=== PATIENT | female | born 1970 | race Caucasian/White ===

== ENCOUNTER 2016-06-15 10:35 | Emergency (ER) | payer MEDICAID ==
[2014-12-18 10:18] VITALS: BMI 39.5
[~2016-06-15 10:35] MED LIST: ADVAIR 250/501 DISK INH; ADVAIR 500/501 DISK INH; ALDACTAZIDE 25/1 TAB PO; ALDACTONE25 MG PO; BENADRYL 2% CRE30 GM TOPICAL; CALCIUM 600+D T1 TA1 PO; CLEOCIN HCL300 MG PO; COLACE100 MG PO; CYCLOBENZAPRINE10 MG PO; DILAUDID2 MG OR; DILAUDID2 MG PO; DUONEB 2.5-0.5 M3 ML UPD; FLEXERIL10 MG OR; FLORANEX / LACT1 TAB PO; HYOMAX0.125 MG PO; IPRAT-ALBUT 0.5-3 ML UPD; K-DUR20 MEQ PO; LASIX20 MG PO; LASIX40 MG PO; MONISTAT VG; OXYCONTIN10 MG PO; PERCOCET 10/3251 TA1 PO; PLEXUS; PRILOSEC20 MG PO; PRINIVIL10 MG PO; PROVENTIL HFA6.7 GM INH; SINGULAIR10 MG PO; SYMBICORT 16010.2 GM INH; VALIUM5 MG PO; ZOFRAN8 MG PO
== END 2016-06-15 14:14 | disposition home or self-care (01) ==
LOC: D.ER 10:35
DX: L25.9 Unspecified contact dermatitis, unspecified cause (principal); J45.909 Unspecified asthma, uncomplicated; E87.6 Hypokalemia

== ENCOUNTER 2016-10-06 11:48 | Emergency (ER) | payer MEDICAID ==
[2014-12-18 10:18] VITALS: BMI 39.5
== END 2016-10-06 12:51 | disposition home or self-care (01) ==
LOC: D.ER 11:48
DX: Z76.0 Encounter for issue of repeat prescription (principal); J45.909 Unspecified asthma, uncomplicated

== ENCOUNTER 2016-10-08 21:16 | Emergency (ER) | payer MEDICAID ==
[2014-12-18 10:18] VITALS: BMI 39.5
[2016-10-08 23:38] LABS: UDS - AMPHET NEGATIVE QUAL (NEGATIVE); UDS - BARB NEGATIVE QUAL (NEGATIVE); UDS - BENZO NEGATIVE QUAL (NEGATIVE); UDS - COCAINE NEGATIVE QUAL (NEGATIVE); UDS - METH NEGATIVE QUAL (NEGATIVE); UDS - OPIATE NEGATIVE QUAL (NEGATIVE); UDS - PCP NEGATIVE QUAL (NEGATIVE); UDS - THC NEGATIVE QUAL (NEGATIVE)
[2016-10-08 23:40] LABS: APPEARANCE CLEAR (CLEAR); BILIRUBIN NEGATIVE (NEGATIVE); COLOR YELLOW (YELLOW); GLUCOSE NEGATIVE (NEGATIVE); KETONE NEGATIVE (NEGATIVE); LEUKOCYTE ESTERASE TRACE (NEGATIVE); NITRITE NEGATIVE (NEGATIVE); PROTEIN NEGATIVE (NEGATIVE); UROBILINOGEN NORMAL (NORMAL)
[2016-10-08 23:41] LABS: BACTERIA NONE SEEN /hpf (NONE SEEN); EPITHELIAL CELLS 0-5 /hpf (0-5); RED CELLS - URINE NONE SEEN /hpf (0-5); WHITE CELLS - URINE 0-5 /hpf (0-5)
[2016-10-09 00:08] LABS: HEMATOCRIT 39.3 % (36.0-48.0); HEMOGLOBIN 13.3 g/dL (12-16); LYMPHOCYTES 26.2 % (15-50); MCH 32.8 pg (26.0-34.0); MCHC 33.8 g/dL (31.0-37.0); NEUTROPHILS 68.5 % (40-80); PLATELET COUNT 219 10x3/uL (130-400); RBC 4.05 10x6/uL (4.00-5.40); WBC 7.2 10x3/uL (4.8-10.8)
[2016-10-09 00:20] LABS: ALBUMIN 3.4 g/dL (3.4-5.0); ANION GAP 7.7 mmol/L (8-16); BILIRUBIN - TOTAL 0.46 mg/dL (0.2-1.3); CALCIUM 8.8 mg/dL (8.5-10.1); CARBON DIOXIDE 32.4 mmol/L (21.0-32.0); CREATININE - SERUM 1.2 mg/dL (0.6-1.3); POTASSIUM - SERUM 3.1 mmol/L (3.5-5.1); PROTEIN - SERUM 7.3 g/dL (6.4-8.2)
== END 2016-10-09 00:08 | disposition home or self-care (01) ==
LOC: D.ER 21:16
PROVIDERS: Emergency Medicine Emergency Medical Services
DX: Z03.89 Encounter for observation for other suspected diseases and conditions ruled out (principal); J45.909 Unspecified asthma, uncomplicated

== ENCOUNTER 2017-01-16 05:39 | Emergency (ER) | payer MEDICAID ==
[2014-12-18 10:18] VITALS: BMI 39.5
[2017-01-16 06:12] LABS: BASOPHILS 0.3 % (0-2); HEMATOCRIT 43.2 % (36.0-48.0); HEMOGLOBIN 14.6 g/dL (12-16); IMMATURE GRANULOCYTES 0.5 % (0-5); LYMPHOCYTES 34.1 % (15-50); MCH 33.6 pg (26.0-34.0); MCHC 33.8 g/dL (31.0-37.0); MCV 99.3 fL (80.0-100.0); MEAN PLATELET VOLUME 10.6 fL (7.4-10.4); MONOCYTES 3.8 % (2-11); NEUTROPHILS 59.3 % (40-80); RBC 4.35 10x6/uL (4.00-5.40); RDW 12.2 % (11.5-14.5)
[2017-01-16 06:13] LABS: PLATELET COUNT 290 10x3/uL (130-400)
[2017-01-16 06:32] LABS: ALBUMIN 3.4 g/dL (3.4-5.0); ANION GAP 19.8 mmol/L (8-16); BILIRUBIN - TOTAL 0.66 mg/dL (0.2-1.3); CALCIUM 8.4 mg/dL (8.5-10.1); CARBON DIOXIDE 25.8 mmol/L (21.0-32.0); MAGNESIUM - SERUM 1.8 mg/dL (1.8-2.4); PHOSPHOROUS 3.5 mg/dL (2.5-4.9); POTASSIUM - SERUM 3.6 mmol/L (3.5-5.1); PROTEIN - SERUM 7.6 g/dL (6.4-8.2)
== END 2017-01-16 06:56 | disposition home or self-care (01) ==
LOC: D.ER 05:39
PROVIDERS: Emergency Medicine
DX: I47.1 Supraventricular tachycardia (principal); I45.10 Unspecified right bundle-branch block

== ENCOUNTER 2017-05-30 04:54 | Emergency (ER) | payer MEDICAID ==
[2014-12-18 10:18] VITALS: BMI 39.5
[2017-05-30 05:30] LABS: BASOPHILS 0.2 % (0-2); EOSINOPHILS 0.1 % (0-7); HEMATOCRIT 45.5 % (36.0-48.0); HEMOGLOBIN 15.5 g/dL (12-16); IMMATURE GRANULOCYTES 0.6 % (0-5); LYMPHOCYTES 26.4 % (15-50); MCH 33.5 pg (26.0-34.0); MCHC 34.1 g/dL (31.0-37.0); MCV 98.5 fL (80.0-100.0); MEAN PLATELET VOLUME 10.7 fL (7.4-10.4); NEUTROPHILS 68.7 % (40-80); PLATELET COUNT 298 10x3/uL (130-400); RBC 4.62 10x6/uL (4.00-5.40); RDW 12.6 % (11.5-14.5); WBC 12.4 10x3/uL (4.8-10.8)
[2017-05-30 05:42] LABS: ALBUMIN 3.6 g/dL (3.4-5.0); ALKALINE PHOSPHATASE 86 U/L (46-116); ALT (SGPT) 85 U/L (10-68); BILIRUBIN - TOTAL 0.25 mg/dL (0.2-1.3); CALC OSMOLALITY 288 mosm/kg (275-300); CALCIUM 8.7 mg/dL (8.5-10.1); CARBON DIOXIDE 21.7 mmol/L (21.0-32.0); CHLORIDE - SERUM 102 mmol/L (98-107); GLUCOSE 197 mg/dL (74-106); POTASSIUM - SERUM 3.6 mmol/L (3.5-5.1); PROTEIN - SERUM 8.5 g/dL (6.4-8.2); SODIUM 141 mmol/L (136-145); UREA NITROGEN 20 mg/dL (7-18); eGFR NON AFRICAN AMERICAN 64 mL/min (90-120)
[2017-05-30 05:54] LABS: CKMB 0.7 U/L (0.0-3.6); CREATINE KINASE 72 UL (21-215)
[2017-05-30 06:03] LABS: TROPONIN-I < 0.017 ng/mL (0.000-0.060)
== END 2017-05-30 06:42 | disposition home or self-care (01) ==
LOC: D.ER 04:54
PROVIDERS: Emergency Medicine
DX: I47.1 Supraventricular tachycardia (principal); R07.9 Chest pain, unspecified; I45.10 Unspecified right bundle-branch block

== ENCOUNTER 2017-06-24 08:41 | Emergency (ER) | payer MEDICAID ==
[2014-12-18 10:18] VITALS: BMI 39.5
[2017-06-24 09:32] LABS: BASOPHILS 0.6 % (0-2); EOSINOPHILS 3.3 % (0-7); HEMATOCRIT 45.3 % (36.0-48.0); HEMOGLOBIN 15.5 g/dL (12-16); IMMATURE GRANULOCYTES 0.5 % (0-5); LYMPHOCYTES 25.2 % (15-50); MCH 33.6 pg (26.0-34.0); MCHC 34.2 g/dL (31.0-37.0); MCV 98.3 fL (80.0-100.0); MEAN PLATELET VOLUME 10.4 fL (7.4-10.4); NEUTROPHILS 63.4 % (40-80); RBC 4.61 10x6/uL (4.00-5.40); RDW 12.4 % (11.5-14.5); WBC 8.1 10x3/uL (4.8-10.8)
[2017-06-24 09:42] LABS: PLATELET COUNT 231 10x3/uL (130-400)
[2017-06-24 09:47] LABS: ALBUMIN 3.6 g/dL (3.4-5.0); ANION GAP 12.2 mmol/L (8-16); BILIRUBIN - TOTAL 0.37 mg/dL (0.2-1.3); CALCIUM 8.8 mg/dL (8.5-10.1); CARBON DIOXIDE 30.2 mmol/L (21.0-32.0); POTASSIUM - SERUM 4.4 mmol/L (3.5-5.1); PROTEIN - SERUM 8.6 g/dL (6.4-8.2)
[2017-06-24 09:55] LABS: APPEARANCE CLEAR (CLEAR); BILIRUBIN NEGATIVE (NEGATIVE); COLOR YELLOW (YELLOW); GLUCOSE NEGATIVE (NEGATIVE); KETONE NEGATIVE (NEGATIVE); NITRITE NEGATIVE (NEGATIVE); PROTEIN NEGATIVE (NEGATIVE); SPECIFIC GRAVITY 1.005 (1.005-1.020); UROBILINOGEN NORMAL (NORMAL)
== END 2017-06-24 11:21 | disposition home or self-care (01) ==
LOC: D.ER 08:41
PROVIDERS: Emergency Medicine
DX: M54.5 Low back pain (principal); J20.9 Acute bronchitis, unspecified

== ENCOUNTER 2017-06-30 22:57 | Emergency (ER) | payer MEDICAID ==
[2014-12-18 10:18] VITALS: BMI 39.5
[2017-06-30 23:21] LABS: BASOPHILS 0.3 % (0-2); HEMATOCRIT 48.7 % (36.0-48.0); HEMOGLOBIN 17.1 g/dL (12-16); IMMATURE GRANULOCYTES 0.6 % (0-5); LYMPHOCYTES 28.5 % (15-50); MCH 34.3 pg (26.0-34.0); MCHC 35.1 g/dL (31.0-37.0); MCV 97.6 fL (80.0-100.0); MEAN PLATELET VOLUME 10.5 fL (7.4-10.4); MONOCYTES 3.8 % (2-11); NEUTROPHILS 65.8 % (40-80); PLATELET COUNT 338 10x3/uL (130-400); RBC 4.99 10x6/uL (4.00-5.40); RDW 12.4 % (11.5-14.5); WBC 18.1 10x3/uL (4.8-10.8)
[2017-06-30 23:36] LABS: ALBUMIN 3.7 g/dL (3.4-5.0); ALKALINE PHOSPHATASE 87 U/L (46-116); ALT (SGPT) 63 U/L (10-68); CALC OSMOLALITY 288 mosm/kg (275-300); CALCIUM 9.9 mg/dL (8.5-10.1); CARBON DIOXIDE 27.5 mmol/L (21.0-32.0); CHLORIDE - SERUM 97 mmol/L (98-107); CREATININE - SERUM 1.4 mg/dL (0.6-1.3); GLUCOSE 174 mg/dL (74-106); POTASSIUM - SERUM 3.1 mmol/L (3.5-5.1); PROTEIN - SERUM 8.5 g/dL (6.4-8.2); SODIUM 139 mmol/L (136-145); UREA NITROGEN 32 mg/dL (7-18); eGFR NON AFRICAN AMERICAN 43 mL/min (90-120)
[2017-06-30 23:45] LABS: CHOL - HDL RATIO 3.7 ratio (2.3-4.1); CHOLESTEROL, TOTAL 235 mg/dL (0-200); CKMB 0.9 U/L (0.0-3.6); CREATINE KINASE 61 UL (21-215); HDL CHOLESTEROL 63 mg/dL (32-96); TRIGLYCERIDE 457 mg/dL (30-200); TROPONIN-I < 0.017 ng/mL (0.000-0.060)
== END 2017-07-01 03:03 | disposition home or self-care (01) ==
LOC: D.ER 22:57
PROVIDERS: Family Medicine
DX: I48.91 Unspecified atrial fibrillation (principal)

== ENCOUNTER 2017-07-07 07:53 | Emergency (ER) | payer MEDICAID ==
[2014-12-18 10:18] VITALS: BMI 39.5
[2017-07-07 08:30] LABS: BASOPHILS 0.2 % (0-2); EOSINOPHILS 0.6 % (0-7); HEMATOCRIT 42.5 % (36.0-48.0); HEMOGLOBIN 14.3 g/dL (12-16); IMMATURE GRANULOCYTES 0.4 % (0-5); LYMPHOCYTES 34.2 % (15-50); MCH 33.4 pg (26.0-34.0); MCHC 33.6 g/dL (31.0-37.0); MCV 99.3 fL (80.0-100.0); MONOCYTES 6.1 % (2-11); NEUTROPHILS 58.5 % (40-80); PLATELET COUNT 298 10x3/uL (130-400); RBC 4.28 10x6/uL (4.00-5.40); RDW 12.5 % (11.5-14.5); WBC 10.8 10x3/uL (4.8-10.8)
[2017-07-07 08:34] LABS: INR 1.01 (0.85-1.17); PROTIME 12.9 SECONDS (11.6-15.0)
[2017-07-07 08:36] LABS: D-DIMER-QUANTITATIVE < 0.27 ug/mLFEU (0.20-0.54)
[2017-07-07 08:37] LABS: ALBUMIN 3.3 g/dL (3.4-5.0); ANION GAP 12.7 mmol/L (8-16); BILIRUBIN - TOTAL 0.4 mg/dL (0.2-1.3); CALCIUM 8.9 mg/dL (8.5-10.1); CARBON DIOXIDE 25.1 mmol/L (21.0-32.0); POTASSIUM - SERUM 3.8 mmol/L (3.5-5.1); PROTEIN - SERUM 7.3 g/dL (6.4-8.2)
== END 2017-07-07 09:50 | disposition home or self-care (01) ==
LOC: D.ER 07:53
PROVIDERS: Family Medicine
DX: S90.121A Contusion of right lesser toe(s) without damage to nail, initial encounter (principal); W22.8XXA Striking against or struck by other objects, initial encounter; Y93.89 Activity, other specified; Y92.019 Unspecified place in single-family (private) house as the place of occurrence of the external cause

== ENCOUNTER 2017-07-27 04:04 | Observation (INO) | payer MEDICAID ==
[~2017-07-27] VITALS: Ht 162.6 cm; Wt 109.1 kg
[2017-07-27 04:53] LABS: BASOPHILS 0.3 % (0-2); EOSINOPHILS 0.4 % (0-7); HEMATOCRIT 45.2 % (36.0-48.0); HEMOGLOBIN 15.6 g/dL (12-16); IMMATURE GRANULOCYTES 0.4 % (0-5); LYMPHOCYTES 26.5 % (15-50); MCH 33.8 pg (26.0-34.0); MCHC 34.5 g/dL (31.0-37.0); MCV 97.8 fL (80.0-100.0); MEAN PLATELET VOLUME 10.9 fL (7.4-10.4); MONOCYTES 4.5 % (2-11); NEUTROPHILS 67.9 % (40-80); PLATELET COUNT 275 10x3/uL (130-400); RBC 4.62 10x6/uL (4.00-5.40); RDW 12.3 % (11.5-14.5); WBC 11.3 10x3/uL (4.8-10.8)
[2017-07-27 04:54] LABS: MAGNESIUM - SERUM 1.8 mg/dL (1.8-2.4); PHOSPHOROUS 3.2 mg/dL (2.5-4.9)
[2017-07-27 05:09] LABS: ALBUMIN 3.4 g/dL (3.4-5.0); ALKALINE PHOSPHATASE 89 U/L (46-116); ALT (SGPT) 50 U/L (10-68); BILIRUBIN - TOTAL 0.25 mg/dL (0.2-1.3); CALCIUM 8.2 mg/dL (8.5-10.1); CARBON DIOXIDE 22.5 mmol/L (21.0-32.0); CHLORIDE - SERUM 99 mmol/L (98-107); CKMB 0.8 U/L (0.0-3.6); CREATININE - SERUM 1.5 mg/dL (0.6-1.3); POTASSIUM - SERUM 3.4 mmol/L (3.5-5.1); PROTEIN - SERUM 7.5 g/dL (6.4-8.2); SODIUM 137 mmol/L (136-145); UREA NITROGEN 24 mg/dL (7-18); eGFR NON AFRICAN AMERICAN 40 mL/min (90-120)
[2017-07-27 05:12] LABS: CALC OSMOLALITY 284 mosm/kg (275-300); GLUCOSE 223 mg/dL (74-106); TROPONIN-I < 0.017 ng/mL (0.000-0.060)
[2017-07-27] MEDS ORDERED: K-DUR20 MEQ PO (07:56)
[2017-07-27] MEDS ORDERED: ORAPRED ODT10 MG/TAB PO (07:57)
[2017-07-27] MEDS ORDERED: ALDACTAZIDE 25/1 TAB PO (07:59)
[2017-07-27] MEDS ORDERED: NEURONTIN 300300 MG PO (08:00)
[2017-07-27] MEDS ORDERED: TOPAMAX50 MG PO (08:00)
[2017-07-27] MEDS ORDERED: ROBAXIN500 MG PO (08:01)
[2017-07-27 08:26] VITALS: BP 152/84
[2017-07-27 08:28] VITALS: BP 151/89; BMI 41.3
[2017-07-27 11:51] VITALS: BP 165/82
[2017-07-27] MEDS ORDERED: LOPRESSOR25 MG PO (12:04)
[2017-07-27 12:17] VITALS: Ht 162.6 cm; Wt 109.1 kg
== END 2017-07-27 14:45 | disposition home or self-care (01) ==
LOC: D.ER 04:04 → OBSVTIME 05:54 → D.EDHOLD 05:54 → D.M2 05:54
PROVIDERS: Family Medicine
DX: I47.1 Supraventricular tachycardia (principal); I10 Essential (primary) hypertension; M54.5 Low back pain; G89.29 Other chronic pain; J45.909 Unspecified asthma, uncomplicated; G40.909 Epilepsy, unspecified, not intractable, without status epilepticus; K21.9 Gastro-esophageal reflux disease without esophagitis; F41.9 Anxiety disorder, unspecified; Z87.891 Personal history of nicotine dependence; N17.9 Acute kidney failure, unspecified; G62.9 Polyneuropathy, unspecified

== ENCOUNTER 2018-02-13 14:49 | Emergency (ER) | payer MEDICAID ==
[~2018-02-13] VITALS: Ht 162.6 cm; Wt 109.1 kg
[~2018-02-13 14:49] MED LIST changes: +LOPRESSOR25 MG PO; +NEURONTIN 300300 MG PO; +ORAPRED ODT10 MG/TAB PO; +ROBAXIN500 MG PO; +TOPAMAX50 MG PO
[2018-02-13 15:04] VITALS: BP 144/101; Ht 162.6 cm; Wt 109.1 kg
[2018-02-13] MEDS ORDERED: CYCLOBENZAPRINE10 MG PO (17:39)
[2018-02-13] MEDS ORDERED: MEDROL DOSE PACK4 MG PO (17:39)
== END 2018-02-13 18:11 | disposition home or self-care (01) ==
LOC: D.ER 14:49
DX: S39.012A Strain of muscle, fascia and tendon of lower back, initial encounter (principal); W01.0XXA Fall on same level from slipping, tripping and stumbling without subsequent striking against object, initial encounter; Y93.89 Activity, other specified; Y92.019 Unspecified place in single-family (private) house as the place of occurrence of the external cause; M62.838 Other muscle spasm; S46.911A Strain of unspecified muscle, fascia and tendon at shoulder and upper arm level, right arm, initial encounter; M25.552 Pain in left hip; M54.5 Low back pain; I10 Essential (primary) hypertension

== ENCOUNTER 2018-07-28 11:12 | Emergency (ER) | payer MEDICAID ==
[~2018-07-28] VITALS: Ht 162.6 cm; Wt 100.0 kg
[~2018-07-28 11:12] MED LIST changes: +MEDROL DOSE PACK4 MG PO
[2018-07-28 11:17] VITALS: Ht 162.6 cm; Wt 100.0 kg
[2018-07-28 11:54] LABS: BASOPHILS 0.4 % (0-2); EOSINOPHILS 1.5 % (0-7); HEMATOCRIT 47.9 % (36.0-48.0); HEMOGLOBIN 16.1 g/dL (12-16); IMMATURE GRANULOCYTES 0.6 % (0-5); LYMPHOCYTES 22.4 % (15-50); MCH 33.8 pg (26.0-34.0); MCHC 33.6 g/dL (31.0-37.0); MCV 100.4 fL (80.0-100.0); MEAN PLATELET VOLUME 10.8 fL (7.4-10.4); NEUTROPHILS 70.1 % (40-80); PLATELET COUNT 213 10x3/uL (130-400); RBC 4.77 10x6/uL (4.00-5.40); RDW 13.3 % (11.5-14.5); WBC 8.1 10x3/uL (4.8-10.8)
[2018-07-28 11:58] LABS: APTT 26.4 SECONDS (22.8-39.4); INR 1.05 (0.85-1.17); PROTIME 13.2 SECONDS (11.6-15.0)
[2018-07-28 12:17] LABS: ALBUMIN 3.4 g/dL (3.4-5.0); ALKALINE PHOSPHATASE 106 U/L (46-116); ALT (SGPT) 105 U/L (10-68); BILIRUBIN - TOTAL 0.48 mg/dL (0.2-1.3); CALC OSMOLALITY 281 mosm/kg (275-300); CALCIUM 8.8 mg/dL (8.5-10.1); CARBON DIOXIDE 29.2 mmol/L (21.0-32.0); CHLORIDE - SERUM 102 mmol/L (98-107); CREATININE - SERUM 0.8 mg/dL (0.6-1.3); POTASSIUM - SERUM 4.5 mmol/L (3.5-5.1); PROTEIN - SERUM 8.2 g/dL (6.4-8.2); SODIUM 141 mmol/L (136-145); UREA NITROGEN 13 mg/dL (7-18); eGFR NON AFRICAN AMERICAN 82 mL/min (90-120)
[2018-07-28 12:18] LABS: GLUCOSE 116 mg/dL (74-106)
[2018-07-28 13:32] VITALS: BP 170/105
== END 2018-07-28 13:34 | disposition home or self-care (01) ==
LOC: D.ER 11:12
PROVIDERS: Family Medicine
DX: S70.02XA Contusion of left hip, initial encounter (principal); W18.30XA Fall on same level, unspecified, initial encounter; Y93.89 Activity, other specified; Y92.010 Kitchen of single-family (private) house as the place of occurrence of the external cause; S70.12XA Contusion of left thigh, initial encounter; M79.662 Pain in left lower leg

== ENCOUNTER → 2018-08-06 14:31 | Outpatient (CLI) | payer MEDICAID ==
[2018-07-28 11:17] VITALS: BMI 37.8
== END | disposition home or self-care (01) ==
LOC: D.MRI 14:30
PROVIDERS: ATTEND Clinical Nurse Specialist Family Health
DX: M25.552 Pain in left hip (principal); M54.16 Radiculopathy, lumbar region

== ENCOUNTER 2018-08-25 07:22 | Inpatient (IN) | payer MEDICAID ==
[~2018-08-25] VITALS: Ht 162.6 cm; Wt 111.1 kg
[2018-08-25 08:21] LABS: BASOPHILS 0.3 % (0-2); EOSINOPHILS 2.6 % (0-7); HEMATOCRIT 44.4 % (36.0-48.0); HEMOGLOBIN 15.1 g/dL (12-16); IMMATURE GRANULOCYTES 0.3 % (0-5); LYMPHOCYTES 22.3 % (15-50); MEAN PLATELET VOLUME 10.8 fL (7.4-10.4); MONOCYTES 4.4 % (2-11); NEUTROPHILS 70.1 % (40-80); RBC 4.44 10x6/uL (4.00-5.40); RDW 13.1 % (11.5-14.5); WBC 11.5 10x3/uL (4.8-10.8)
[2018-08-25 08:29] LABS: ALKALINE PHOSPHATASE 120 U/L (46-116); ALT (SGPT) 97 U/L (10-68); BILIRUBIN - TOTAL 0.65 mg/dL (0.2-1.3); C-REACTIVE PROTEIN 2.5 mg/dL (0.0-0.9); CALC OSMOLALITY 274 mosm/kg (275-300); CALCIUM 9.4 mg/dL (8.5-10.1); CARBON DIOXIDE 31.1 mmol/L (21.0-32.0); CHLORIDE - SERUM 99 mmol/L (98-107); CREATINE KINASE 51 UL (21-215); CREATININE - SERUM 0.8 mg/dL (0.6-1.3); GLUCOSE 131 mg/dL (74-106); POTASSIUM - SERUM 3.7 mmol/L (3.5-5.1); PROTEIN - SERUM 7.8 g/dL (6.4-8.2); SODIUM 137 mmol/L (136-145); UREA NITROGEN 11 mg/dL (7-18); URIC ACID 4.3 mg/dL (2.6-7.2); eGFR NON AFRICAN AMERICAN 82 mL/min (90-120)
[2018-08-25 08:37] LABS: PLATELET COUNT 289 10x3/uL (130-400)
[2018-08-25 09:58] LABS: ERYTHROCYTE SEDIMENTATION RATE 26 mm/hr (0-20)
--- NOTE | 2018-08-25 13:58 | NUR ---
NURSE GIVING REPORT FROM ER STATED PATIENT'S PRN DILAUDID ONLY LASTING ONE TO TWO HOURS. SPOKE WITH DR REED WHO STATED DOES NOT FEEL COMFORTABLE CHANGING MEDICATIONS. STATED TO LET ADMITTING DOCTOR ADJUST MEDS NEEDED.
[2018-08-25 15:14] VITALS: BP 151/90; BMI 42.1
[2018-08-25] MEDS ORDERED: GLUCOTROL ER2.5 MG PO (15:24)
--- NOTE | 2018-08-25 15:48 | NUR ---
PATIENT ADMITTED TO ROOM 2237. ALERT AND ORIENTED X 3. LUNGS CLEAR BILATERALLY IN ALL DAMIAN. HEART SOUNDS S1 AND S2 HEARD IN ALL DAMIAN. BOWEL SOUNDS ACTIVE X 4. C/O INTRACTABLE PAIN IN LEFT ANKLE AND FOOT. PIPE SMOKING MACHINE OFFBEARER SET UP ON ADMISSION PER ORDER. REFUSES SCDS. IV TO RIGHT AC PATENT WITHOUT REDNESS. DENIES FURTHER NEEDS. FAMILY AT BEDSIDE. BED LOW. CALL HINSON AND PERSONAL ITEMS IN REACH. WILL CONTINUE TO MONITOR.
--- NOTE | 2018-08-25 15:49 | MORECARE ---
CASE MANAGEMENT DISCHARGE SUMMARY PATIENT: OLIVIA WASHINGTON S UNIT: [id number] ADM DATE: 08/25/18 AGE: 48 : 74 SEX: F ROOM/BED: D.2237 AUTHOR: GREG MILLER PHYSICIAN: REFERRING PHYSICIAN: BRENNAN MEDINA MD DATE OF SERVICE: 08/25/18 Discharge Plan Patient Name: OLIVIA WASHINGTON [facility] [facility] 1970 Planned Disposition: Home Health Service Anticipated Discharge Date: 08/27/18 Discharge Date: Expected LOS: 2 Initial Reviewer: [email or web address] Initial Review Date: 08/25/2018 Generated: 08/25/18 4:49 pm DCPIA - Discharge Planning Initial Assessment Updated by [email or web address]: Shayla Alvarez on 08/25/18 3:46 pm * Is the patient Alert and Oriented? Yes * How many steps to enter\exit or inside your home? * PCP DR. Temple ([facility] ) * Pharmacy [facility] on [address] * Preadmission Environment Home with Family * ADLs Partial Dependent * Partial ADLs (Assistance needed) Bathing Dressing Transfers * Equipment Bedside Commode Rolling Walker * List name and contact numbers for known caregivers / representatives who currently or will assist patient after discharge: Pardeep Washington - [facility] - [phone] * Verbal permission to speak to the caregivers and representatives has been obtained from the patient. Yes * Community resources currently utilized None * Please name any agencies selected above. Has had [facility] in [facility] past and would like them again * Additional services required to return to the preadmission environment? No * Can the patient safely return to the preadmission environment? Yes * Has this patient been hospitalized within the prior 30 days at any hospital? No Patient Name: OLIVIA WASHINGTON Page [id number] at 1540 All edits/amendments must be made on the electronic document DICTATION DATE: 08/25/18 1544 SAFETY ASSISTANT: BETZY 08/25/18 1549 RPT#: [id number] DC DATE: STATUS: ADM IN [facility] [address] [place] [address] END OF REPORT
[2018-08-25 17:13] VITALS: BP 151/60
--- NOTE | 2018-08-25 18:10 | NUR ---
IV RESITED TO STORM PER REQUEST AFTER 2 ATTEMPTS. DENIES FURTHER NEEDS. BED LOW. CALL HINSON AND PERSONAL ITEMS IN REACH.
--- NOTE | 2018-08-25 19:35 | NUR ---
RATES PAIN IN ABD/BACK AND LLE 8. RETAIL ATTENDANT DILAUDID IN USE. 2+ EDEMA NOTED TO LT ANKLE. BILAT PULSES WEAK. NS @ KVO INFUSING IN RT FOREARM. RESP EVEN AND NONLABORED. ALERT AND ORIENTED X4. CL IN REACH.
[2018-08-25 20:00] VITALS: BP 127/61
--- NOTE | 2018-08-25 20:05 | NUR ---
IV OUT AT THIS TIME. MEDICATED WITH PERCOCET WHILE ATTEMPTING TO RESTART IV.
[2018-08-26 04:00] VITALS: BP 133/73
--- NOTE | 2018-08-26 04:53 | NUR ---
PT HAS HAD IV X2 TO INFILTRATE TONIGHT AND HAS HAD MULTIPLE IV STICKS. IV NOW IN RT HAND. NAMED ACCOUNT EXECUTIVE DILAUDID IN USE. PT HAS BEEN USING FREQUENTLY. V/S STABLE. NO DISTRESS. CL IN REACH. HASNT SLEPT MUCH TONIGHT.
--- NOTE | 2018-08-26 05:39 | NUR ---
C/O ITCHING. PT HAS HAD TAPE ON IV SITE ATTEMPTS. NOTIFIED DANTE SCALES. NEW ORDER NOTED FOR BENADRYL 50 MG PO NOW AND 25MG PO Q 6PRN. PT MEDICATED AT THIS TIME. STATES, "LIQUID WORKS BETTER AND HELPS YOU SLEEP." IRRITATED THAT CAPSULES WERE ORDERED.
[2018-08-26 05:44] LABS: BASOPHILS 0 % (0-2); EOSINOPHILS 0 % (0-7); HEMATOCRIT 41.5 % (36.0-48.0); HEMOGLOBIN 13.6 g/dL (12-16); IMMATURE GRANULOCYTES 0.2 % (0-5); LYMPHOCYTES 13.6 % (15-50); MCH 33.3 pg (26.0-34.0); MCHC 32.8 g/dL (31.0-37.0); MCV 101.5 fL (80.0-100.0); MONOCYTES 4.3 % (2-11); NEUTROPHILS 81.9 % (40-80); RBC 4.09 10x6/uL (4.00-5.40); RDW 12.7 % (11.5-14.5); WBC 9.3 10x3/uL (4.8-10.8)
[2018-08-26 06:04] LABS: PLATELET COUNT 220 10x3/uL (130-400)
[2018-08-26 06:17] LABS: ALBUMIN 2.9 g/dL (3.4-5.0); ANION GAP 10.7 mmol/L (8-16); BILIRUBIN - TOTAL 0.36 mg/dL (0.2-1.3); CALCIUM 9.2 mg/dL (8.5-10.1); CARBON DIOXIDE 30.2 mmol/L (21.0-32.0); POTASSIUM - SERUM 3.9 mmol/L (3.5-5.1); PROTEIN - SERUM 7.2 g/dL (6.4-8.2)
--- NOTE | 2018-08-26 07:27 | NUR ---
PT IS RESTING IN BED WITH EYES CLOSED RESPIRATIONS ARE EVEN AND UNLABORED. FAMILY MEMBER IS IN PT BED WELL. PT REPORTS ITCHING ALLOVER. PT REPORTS PAIN 8/10. COMPRESSION MOLDING MACHINE TENDER DILAUDID AVAILABLE. PIV TO RIGHT WRIST IS INFUSING WITHOUT DIFFICULTY. PT STATES "I FEEL LIKE MY IV IS ABOUT TO BLOW". PT STATES THAT SHE BELIEVES THAT SHE BELIEVES THAT SHE HAS AN ALLERGY TO VANC BECAUSE "I AM ITCHING AND I HAVE A RASH NOW AND THAT IT THE ONLY THING THAT IS NEW". WILL ADDRESS ITCHING. SEE EMAR. PT WITH MULTIPLE SCRATCHES TO BILATERAL UPPER EXTREMITIES THAT PT STATES WERE CAUSED FROM A KITTEN. PT IS CONCERNED ABOUT POSSIBLE CAT SCRATCH FEVER. SWELLING NOTED TO LEFT FOOT. PEDAL PULSES ARE PALPABLE. BED IS IN THE LOWEST POSITION. CALL LIGHT AND BEDSIDE TABLE ARE WITHIN REACH. SIDE RAILS X 2. WILL CONT TO MONITOR. PT DENIES FURTHER NEEDS.
--- NOTE | 2018-08-26 08:52 | MORECARE ---
CASE MANAGEMENT DISCHARGE SUMMARY PATIENT: OLIVIA WASHINGTON UNIT: [id number] ADM DATE: 08/25/18 AGE: 48 : 74 SEX: F ROOM/BED: D.2237 AUTHOR: PAUL,DOC PHYSICIAN: REFERRING PHYSICIAN: BRENNAN MEDINA MD DATE OF SERVICE: 08/26/18 Discharge Plan Patient Name: OLIVIA WASHINGTON Facility: [facility]:[place] : 1970 Planned Disposition: Home Health Service Anticipated Discharge Date: 08/27/18 Discharge Date: Expected LOS: 2 Initial Reviewer: [email or web address] Initial Review Date: 08/25/2018 Generated: 08/26/18 9:52 am Comments DCP- Discharge Planning Updated by [email or web address]: Regine Rivera on 08/26/18 7:[address] Patient Name: OLIVIA WASHINGTON Admission Status: ER Accout number: [id number] Admission Date: 08-25-2018 : 1970 Admission Diagnosis: Attending: BRENNAN MEDINA Current LOS: 1 Anticipated DC Date: 08-27-2018 Planned Disposition: Home Health Service [facility] TAMMY Discharge Planning Comments: CM met with patient to complete initial dc planning assessment. CM educated patient on the CM role and verbal consent given by patient to complete assessment. CM verified patient's address, phone number, and emergency contact phone numbers. Patient lives at home with her . At discharge patient plans to return home and feels this is a safe discharge. CM discussed availability of home health, rehab services, and medical equipment. Patient stated she has had HH in the past and would like [facility] at dc as long as she does not have any out of pocket expenses. SEEMA form signed by patient for [facility]. Signed form placed in chart and signed form given to patient. Patient denied further known discharge needs at this time. Patient reports her will transport her home at time of discharge. CM will continue to follow and will assist as needed with dc plans/needs. Animal Assisted Therapist: Shayla Alvarez RN, [facility] DCPIA - Discharge Planning Initial Assessment Updated by [email or web address]: Shayla Alvarez on 08/25/18 3:46 pm * Is the patient Alert and Oriented? Yes * How many steps to enter\exit or inside your home? * PCP DR. Temple ([facility]) * Pharmacy [facility] on [place] * Preadmission Environment Home with Family * ADLs Partial Dependent * Partial ADLs (Assistance needed) Bathing Dressing Transfers * Equipment Bedside Commode Rolling Walker * List name and contact numbers for known caregivers / representatives who currently or will assist patient after discharge: Pardeep Washington - [facility] - [phone] * Verbal permission to speak to the caregivers and representatives has been obtained from the patient. Yes * Community resources currently utilized None * Please name any agencies selected above. Has had [facility] in the past and would like them again * Additional services required to return to the preadmission environment? No * Can the patient safely return to the preadmission environment? Yes * Has this patient been hospitalized within the prior 30 days at any hospital? No Last DP export: 08/25/18 2:49 p Patient Name: OLIVIA WASHINGTON Page 51877 at 0852 All edits/amendments must be made on the electronic document DICTATION DATE: 08/26/18851 INSPECTOR GLASS OR MIRROR: BETZY 08/26/1852 RPT#: [id number] DC DATE: STATUS: ADM IN [facility] [address] [place] [address] END OF REPORT
[2018-08-26 09:25] VITALS: BP 143/91
--- NOTE | 2018-08-26 09:46 | NUR ---
PT STATES THAT "I FEEL LIKE MY IV IS ABOUT TO BLOW". IV INFUSING TO RIGHT WRIST WITHOUT DIFFICULTY/REDNESS/SWELLING/WARMTH/TENDERNESS. PT STATES THAT THE IV MACHINE WILL NOT STOP BEEPING. PT REQUESTS TO CONTACT VASCULAR ACCESS FOR OTHER POSSIBLE IV ACCESS. VASCULAR ACCESS NOTIFIED OF NEED TO ASSESS PT.
--- NOTE | 2018-08-26 11:34 | NUR ---
PT STATES THAT VANCOMYCIN IS CAUSING HER TO ITCH AND HAS CAUSED GENERALIZED REDNESS. PT STATES, "I AM NOT TAKING THAT STUFF AGAIN".
[2018-08-26 13:10] VITALS: BP 135/86
--- NOTE | 2018-08-26 13:34 | NUR ---
PT REPORTS INCREASED ITCHING SINCE INFUSION STARTED WITH MERREM. SEE EMAR FOR INFUSION START TIME. PT INSISTS THAT INFUSION BE STOPPED. INFUSION IS STOPPED AT THIS TIME.
[2018-08-26 14:48] VITALS: Ht 162.6 cm; Wt 111.1 kg
--- NOTE | 2018-08-26 14:48 | NUR ---
PT REQUESTS PIV TO BE MOVED FROM RIGHT WRIST. VASCULAR ACCESS NURSE TITO AT BEDSIDE. 22G TO RIGHT FOREARM PLACED X 2 ATTEMPTS. INFUSION MOVED TO NEW IV SITE. RIGHT WRIST IV SITE SALINE LOCKED.
[2018-08-26] MEDS ORDERED: PRENAVITE1 TAB PO (15:21)
[2018-08-26] MEDS ORDERED: LIPITOR40 MG PO (15:21)
[2018-08-26] MEDS ORDERED: LASIX40 MG PO (15:22)
[2018-08-26] MEDS ORDERED: BACLOFEN10 MG PO (15:22)
[2018-08-26] MEDS ORDERED: IBUPROFEN800 MG PO (15:23)
[2018-08-26] MEDS ORDERED: LYRICA75 MG PO (15:23)
[2018-08-26] MEDS ORDERED: CYMBALTA60 MG PO (15:24)
[2018-08-26] MEDS ORDERED: VALIUM5 MG PO (15:24)
--- NOTE | 2018-08-26 16:50 | NUR ---
PT SITTING IN BED WITH EYES OPEN. PT IS CRYING AND SOBBING UNCONTROLLABLY DUE TO "IT FEELS LIKE THERE IS A SPIKE BEING RAMMED THROUGH MY ANKLE AND FOOT". PT WITH BARREL PAINTER DILAUDID AVAILABLE. WILL ADDRESS BREAKTHROUGH PAIN. SEE EMAR. PT WITH ICE PACK/ELEVATED LOWER EXTREMITY AT THIS TIME.
[2018-08-26 17:14] LABS: ERYTHROCYTE SEDIMENTATION RATE 23 mm/hr (0-20)
[2018-08-26 17:30] VITALS: BP 150/97
--- NOTE | 2018-08-26 19:58 | NUR ---
PT C/O PAIN LEFT FOOT WANTS TO SEE IF CAN GET PAIN GEL FOR RELIEF, WILL LEAVE NOTE FOR DOCTOR OF REQUEST, PRN PAIN MED GIVEN AT 1700 NOT DUE AGAIN UNTIL 2099, WILL MONITOR PAIN UNTIL 2099
[2018-08-26 20:00] VITALS: BP 148/82
[2018-08-27] VITALS: BP 146/93
[2018-08-27 04:00] VITALS: BP 130/81
--- NOTE | 2018-08-27 04:31 | NUR ---
I have reviewed this patient and I concur with the Shift Assessment completed by the Licensed Practical Nurse today this shift.
[2018-08-27 06:37] LABS: BASOPHILS 0.4 % (0-2); EOSINOPHILS 1.6 % (0-7); HEMATOCRIT 40.8 % (36.0-48.0); HEMOGLOBIN 13.1 g/dL (12-16); IMMATURE GRANULOCYTES 0.3 % (0-5); LYMPHOCYTES 21.8 % (15-50); MCH 33.2 pg (26.0-34.0); MCHC 32.1 g/dL (31.0-37.0); MONOCYTES 3.1 % (2-11); NEUTROPHILS 72.8 % (40-80); PLATELET COUNT 231 10x3/uL (130-400); RBC 3.94 10x6/uL (4.00-5.40); RDW 12.8 % (11.5-14.5)
[2018-08-27 06:43] LABS: ANION GAP 7.7 mmol/L (8-16); BILIRUBIN - TOTAL 0.43 mg/dL (0.2-1.3); CALCIUM 9.5 mg/dL (8.5-10.1); CARBON DIOXIDE 33.2 mmol/L (21.0-32.0); POTASSIUM - SERUM 3.9 mmol/L (3.5-5.1); PROTEIN - SERUM 7.4 g/dL (6.4-8.2)
[2018-08-27 06:48] LABS: MCV 103.6 fL (80.0-100.0)
--- NOTE | 2018-08-27 07:15 | NUR ---
SITTING IN BED. ALERT AND ORIENTED X 3. LUNGS CLEAR BILATERALLY IN ALL DAMIAN. HEART SOUNDS S1 AND S2 HEARD IN ALL DAMIAN. BOWEL SOUNDS ACTIVE X 4. SKIN INTACT WITHOUT REDNESS. COMPLAINT OF PAIN IN LEFT ANKLE/FOOT. NO PAIN MEDICATIONS AVAILABLE AT THIS TIME. AUTHORS MOTIVATIONAL PUMP IN PLACE. IV PATENT TO [facility] AND WRAPPED WITH KERLIX PER REQUEST. SANDWICH GIVEN PER REQUEST. BED LOW. CALL HINSON AND PERSONAL ITEMS IN REACH. DENIES FURTHER NEEDS. WILL CONTINUE TO MONITOR.
--- NOTE | 2018-08-27 08:14 | NUR ---
REQUEST TO BE DISCONNECTED FROM IV TO GO DOWN TO VENDING MACHINE. IV DISCONNECTED PER REQUEST.
[2018-08-27 08:35] VITALS: BP 151/95
--- NOTE | 2018-08-27 09:02 | NUR ---
STATES DOES NOT TAKE METOPROLOL AND WANTS TAKEN OFF LIST OF MEDICATION.
--- NOTE | 2018-08-27 09:12 | NUR ---
REQUESTED AND GIVEN ICE PACKS FOR ANKLE. STATES DOES NOT WANT METOPROLOL ON MED LIST ANYMORE, WANTS STOOL SOFTENER ADDED, WANTS MERREM TAKEN OFF OF MAY. WILL NOTIFY MD. DENIES FURTHER NEEDS.
--- NOTE | 2018-08-27 10:20 | NUR ---
SPOKE WITH LAMIN ALFONSO ABOUT PATIENT'S CONCERNS AND ABOUT PATIENT NOT BEING ABLE TO DO MRI. STATES WILL CORRECT PATIENT MEDICATIONS AND TO OFFER PATIENT VALIUM BEFORE MRI.
--- NOTE | 2018-08-27 10:33 | NUR ---
LULÚ WAS BROUGHT TO MRI. WE SCANNED MOST OF THE PRECONTRAST IMAGES BEFORE THE PATIENT QUIT. SHE WANTED TO GO BACK TO HER ROOM AND SLEEP. SPOKE WITH DR VAZQUEZ ABOUT WHAT WAS COMPLETED. SHE SAID WE NEEDED TO CHANGE ORDER TO A WITHOUT AND SEND IMAGES TO PACS TO BE READ. SPOKE WITH MICA AT DR MCGINNIS OFFICE. INFORMED PATIENTS NURSE EVANS.
--- NOTE | 2018-08-27 10:35 | NUR ---
OFFERED PATIENT VALIUM FOR MRI. STATES MIGHT CONSIDER DOING MRI AFTER LUNCH. MARGARITO ALFONSO NOTIFIED. MACHINE FEATHEREDGER AND REDUCER STATED TO NOTIFY DR MCGINNIS. ATTEMPTED TO CALL DR MCGINNIS WITH NO ANSWER AND VOICEMAIL BOX FULL.
--- NOTE | 2018-08-27 10:44 | NUR ---
PHARMACY NOTIFIED OF NEED FOR PRENAVITE IN [place]. STATES WILL LOAD.
[2018-08-27 12:49] VITALS: BP 132/83
--- NOTE | 2018-08-27 13:00 | NUR ---
VASCULAR ACCESS NURSE SPOKE WITH PATIENT ABOUT REASON FOR NOT GETTING CENTRAL LINE OR PICC.
--- NOTE | 2018-08-27 13:01 | NUR ---
PATIENT STATES WANTS TO GET A PICC OR CENTRRAL LINE. LAMIN ALFONSO NOTIFIED. STATES PATIENT IS NOT GETTING EITHER. STATES DR MEDINA WILL SEE PATIENT LATER TODAY.
--- NOTE | 2018-08-27 13:14 | NUR ---
LEAVING ONE TIME DOSE OF VALIUM IN MAR. [facility] ONLY WANTS GIVEN IF PATIENT GOES FOR MRI. WILL TAKE OUT OF MAR IF PATIENT DECIDES IS NOT GOING FOR MRI.
--- NOTE | 2018-08-27 13:26 | NUR ---
PATIENT STATES WOULD LIKE TO SEE PATTERNMAKER WOOD AGAIN ABOUT PAIN CONTROL. PATTERNMAKER WOOD NOTIFIED AND STATES WILL SEE PATIENT.
--- NOTE | 2018-08-27 13:26 | NUR ---
PATIENT ABLE TO SPEAK WITH PUBLIC HEALTH ASSISTANT ABOUT CONCERNS OF BEING UNABLE TO SLEEP.
--- NOTE | 2018-08-27 13:46 | NUR ---
IV INFILTRATED TO RFA. REMOVED WITH TIP INTACT. PATIENT STATES IS NOT GOING TO BE STUCK AGAIN AND TO CALL PROPOSAL ENGINEER. PROPOSAL ENGINEER NOTIFIED AND STATES TO TAKE IV OUT AND PATIENT NOT GETTING PICC OR CENTRAL LINE. PATIENT NOTIFIED. PATIENT STATES WOULD LIKE TO SPEAK TO NURSE GRADE CHECKER. NURSE GRADE CHECKER OFF UNIT. WILL NOTIFY WHEN RETURNS TO UNIT.
--- NOTE | 2018-08-27 14:06 | NUR ---
NOTIFIED NURSE TRACER CLERK PATIENT WOULD LIKE TO SPEAK WITH HER.
--- NOTE | 2018-08-27 15:13 | NUR ---
LENS BLANK GAUGER MET WITH PATIENT. LENS BLANK GAUGER STATED PATIENT NOT GETTING MIDLINE AND TO START NEW IV. PATIENT AGREED TO GET NEW IV AND TO HAVE MRI. SPOKE WITH MRI. MRI STATED WILL CALL AND LET NURSE KNOW WHEN AVAILABLE AND TO GIVE PATIENT VALIUM FOR MRI. PATIENT NOTIFIED.
--- NOTE | 2018-08-27 15:29 | NUR ---
REQUESTED AND GIVEN PRN ZOFRAN.
--- NOTE | 2018-08-27 15:43 | NUR ---
MRI STATED NEED NEW ORDER TO PERFORM MRI SINCE PATIENT ALREADY HAD DONE WITHOUT CONTRAST. NEW ORDER PLACED. WILL GIVE VALIUM.
--- NOTE | 2018-08-27 15:56 | NUR ---
BOLUS DOSE 0.4MG GIVEN FROM IT ARCHITECTURE ANALYST PER REQUEST.
[2018-08-27 16:07] VITALS: BP 160/102
--- NOTE | 2018-08-27 16:18 | NUR ---
NOTIFIED BY TERRAZZO GRINDER PATIENT O2 SATURATION 89%. REASSESSED O2. SATURATION 95%. PATIENT TAKEN FOR MRI.
--- NOTE | 2018-08-27 17:31 | NUR ---
RETURNED FROM MRI. STATES DOES NOT WANT TO BE RECONNECTED TO IV VANC.
--- NOTE | 2018-08-27 17:33 | NUR ---
REQUESTED AND GIVEN ICE PACKS FOR ANKLE.
--- NOTE | 2018-08-27 18:06 | NUR ---
DIALAUDID FACILITY PRACTICE SPECIALIST CLEARED 95.36ML. NOT ALL ON THIS SHIFT. IV PUMP HAD NOT BEEN CLEARED.
[2018-08-27 20:00] VITALS: BP 152/86
[2018-08-28 04:00] VITALS: BP 173/102
--- NOTE | 2018-08-28 04:02 | NUR ---
I have reviewed this patient and I concur with the Shift Assessment completed by the Licensed Practical Nurse today this shift.
[2018-08-28 06:41] LABS: BASOPHILS 0.2 % (0-2); EOSINOPHILS 3.9 % (0-7); HEMATOCRIT 38.9 % (36.0-48.0); HEMOGLOBIN 12.4 g/dL (12-16); IMMATURE GRANULOCYTES 0.4 % (0-5); LYMPHOCYTES 25.4 % (15-50); MCH 33.1 pg (26.0-34.0); MCHC 31.9 g/dL (31.0-37.0); MCV 103.7 fL (80.0-100.0); MEAN PLATELET VOLUME 10.7 fL (7.4-10.4); MONOCYTES 3.1 % (2-11); RBC 3.75 10x6/uL (4.00-5.40)
[2018-08-28 07:01] LABS: PLATELET COUNT 155 10x3/uL (130-400); WBC 5.1 10x3/uL (4.8-10.8)
[2018-08-28 07:06] LABS: ALBUMIN 2.7 g/dL (3.4-5.0); ALKALINE PHOSPHATASE 106 U/L (46-116); ALT (SGPT) 93 U/L (10-68); BILIRUBIN - TOTAL 0.33 mg/dL (0.2-1.3); CALC OSMOLALITY 286 mosm/kg (275-300); CALCIUM 8.4 mg/dL (8.5-10.1); CHLORIDE - SERUM 103 mmol/L (98-107); CREATININE - SERUM 0.8 mg/dL (0.6-1.3); GLUCOSE 154 mg/dL (74-106); POTASSIUM - SERUM 3.6 mmol/L (3.5-5.1); PROTEIN - SERUM 6.8 g/dL (6.4-8.2); SODIUM 142 mmol/L (136-145); UREA NITROGEN 14 mg/dL (7-18); eGFR NON AFRICAN AMERICAN 82 mL/min (90-120)
--- NOTE | 2018-08-28 07:47 | NUR ---
PT IS RESTING IN BED WITH EYES OPEN. PT REPORTS PAIN 10/10. LEAD SYSTEMS ENGINEER DILAUDID AVAILABLE. PT REQUESTING PERCOCET. WILL ADDRESS PAIN. SEE EMAR. PT DENIES PRESENCE OF DYSPNEA. PT WITH QUESTIONS/CONCERNS REGARDING UNKNOWN CAUSE OF PAIN AND SWELLING. PT DENIES FURTHER CONCERNS. BED IS IN THE LOWEST POSITION. CALL LIGHT AND BEDSIDE TABLE ARE WITHIN REACH. SIDE RAILS X 2. WILL CONT TO MONITOR.
[2018-08-28 09:09] VITALS: BP 172/102
--- NOTE | 2018-08-28 10:24 | NUR ---
PT AND PT FAMILY NOTIFIED OF DISCHARGE ORDER. PT AND PT FAMILY MEMBER WITH CONCERNS RELATED TO PT LEAVING. PT AND PT FAMILY MEMBER ARE NOT COMFORTABLE WITH DISCHARGE AT THIS TIME. WILL NOTIFY
--- NOTE | 2018-08-28 12:16 | MORECARE ---
CASE MANAGEMENT DISCHARGE SUMMARY PATIENT: OLIVIA WASHINGTON UNIT: [id number] ADM DATE: 08/25/18 AGE: 48 : 74 SEX: F ROOM/BED: D.2237 AUTHOR: PAUL,DOC PHYSICIAN: REFERRING PHYSICIAN: BRENNAN MEDINA MD DATE OF SERVICE: 08/28/18 Discharge Plan Patient Name: OLIVIA WASHINGTON Facility: [facility]:[place] : 1970 Planned Disposition: Home Health Service Anticipated Discharge Date: 08/27/18 Discharge Date: Expected LOS: 2 Initial Reviewer: [email or web address] Initial Review Date: 08/25/2018 Generated: 08/28/18 1:16 pm Comments DCP- Discharge Planning Updated by [email or web address]: Regine Nicole on 08/28/18 11:[address] Received discharge order. She is asking for HHS with [facility]. I called [facility] and spoke to meliton Joseph faxed. No other needs identified. is present in the room. CM will continue to follow and assist with discharge planning/needs. DCP- Discharge Planning Updated by [email or web address]: Regine Agarwalleroy on 08/26/18 7:[address] Patient Name: OLIVIA WASHINGTON Admission Status: ER Accout number: [id number] Admission Date: 08-25-2018 : 1970 Admission Diagnosis: Attending: BRENNAN MEDINA Current LOS: 1 Anticipated DC Date: 08-27-2018 Planned Disposition: Home Health Service [facility] Discharge Planning Comments: CM met with patient to complete initial dc planning assessment. CM educated patient on the CM role and verbal consent given by patient to complete assessment. CM verified patient's address, phone number, and emergency contact phone numbers. Patient lives at home with her . At discharge patient plans to return home and feels this is a safe discharge. CM discussed availability of home health, rehab services, and medical equipment. Patient stated she has had HH in the past and would like [facility] at dc as long as she does not have any out of pocket expenses. SEEMA form signed by patient for [facility]. Signed form placed in chart and signed form given to patient. Patient denied further known discharge needs at this time. Patient reports her will transport her home at time of discharge. CM will continue to follow and will assist as needed with dc plans/needs. Maintainer [employer]: Shayla Alvarez RN, [facility] DCPIA - Discharge Planning Initial Assessment Updated by [id number]: Shayla Alvarez on 08/25/18 3:46 pm * Is the patient Alert and Oriented? Yes * How many steps to enter\exit or inside your home? * PCP DR. Temple ([facility] ) * Pharmacy [facility] on [address] * Preadmission Environment Home with Family * ADLs Partial Dependent * Partial ADLs (Assistance needed) Bathing Dressing Transfers * Equipment Bedside Commode Rolling Walker * List name and contact numbers for known caregivers / representatives who currently or will assist patient after discharge: Pardeep Washington - spouse - [phone] * Verbal permission to speak to the caregivers and representatives has been obtained from the patient. Yes * Community resources currently utilized None * Please name any agencies selected above. Has had [facility] in the past and would like them again * Additional services required to return to the preadmission environment? No * Can the patient safely return to the preadmission environment? Yes * Has this patient been hospitalized within the prior 30 days at any hospital? No External Providers External Provider: [facility] Next Contact Date: Service Request Date: Service Type: Resolution: Reviewer: Comments: Last DP export: 08/26/18 7:52 a Patient Name: OLIVIA WASHINGTON Page [phone] at 1216 All edits/amendments must be made on the electronic document DICTATION DATE: 08/28/18 1216 SOAPSTONER: BETZY 08/28/18 1216 RPT#: [id number] DC DATE: STATUS: ADM IN [facility] [address] [place] [address] END OF REPORT
[2018-08-28 13:28] VITALS: BP 160/87
--- NOTE | 2018-08-28 16:11 | NUR ---
PT OUT OF ROOM FOR CT. FILM LIBRARY CLERK DILAUDID D/C PER ORDER.
--- NOTE | 2018-08-28 16:47 | MORECARE ---
CASE MANAGEMENT DISCHARGE SUMMARY PATIENT: OLIVIA WASHINGTON UNIT: [id number] ADM DATE: 08/25/18 AGE: 48 : 74 SEX: F ROOM/BED: D.2237 AUTHOR: PAUL,DOC PHYSICIAN: REFERRING PHYSICIAN: BRENNAN MEDINA MD DATE OF SERVICE: 08/28/18 Discharge Plan Patient Name: OLIVIA WASHINGTON Facility: [facility]:[place] : 1970 Planned Disposition: Home Health Service Anticipated Discharge Date: 08/27/18 Discharge Date: Expected LOS: 2 Initial Reviewer: [email or web address] Initial Review Date: 08/25/2018 Generated: 08/28/18 5:47 pm Comments DCP- Discharge Planning Updated by [email or web address]: Regine Rivera on 08/28/18 3:[address] She is awaiting CTA, then discharge home. Luis with CT states they will call results to Sue Jenkins. I called [facility] and Sobia have left for the day, but they will confirm that they can accept her in the morning. Patient states she does not have a second choice of HHS "whoever will take me. " CM will f/u with this in am. DCP- Discharge Planning Updated by [email or web address]: Regine Rivera on 08/28/18 11:[address] Received discharge order. She is asking for [facility] with [facility]. I called [facility] and spoke to meliton Joseph faxed. No other needs identified. is present in the room. CM will continue to follow and assist with discharge planning/needs. DCP- Discharge Planning Updated by [email or web address]: Regine Rivera on 08/26/18 7:[address] Patient Name: OLIVIA WASHINGTON Admission Status: ER Accout number: [id number] Admission Date: 08-25-2018 : 1970 Admission Diagnosis: Attending: BRENNAN MEDINA Current LOS: 1 Anticipated DC Date: 08-27-2018 Planned Disposition: Home Health Service Primary Insurance: [employer] Discharge Planning Comments: CM met with patient to complete initial dc planning assessment. CM educated patient on the CM role and verbal consent given by patient to complete assessment. CM verified patient's address, phone number, and emergency contact phone numbers. Patient lives at home with her . At discharge patient plans to return home and feels this is a safe discharge. CM discussed availability of home health, rehab services, and medical equipment. Patient stated she has had HH in the past and would like [facility] at dc as long as she does not have any out of pocket expenses. SEEMA form signed by patient for [facility]. Signed form placed in chart and signed form given to patient. Patient denied further known discharge needs at this time. Patient reports her will transport her home at time of discharge. CM will continue to follow and will assist as needed with dc plans/needs. Performance Solutions Specialist: Shayla Alvarez RN, [facility] DCPIA - Discharge Planning Initial Assessment Updated by [email or web address]: Shayla Alvarez on 08/25/18 3:46 pm * Is the patient Alert and Oriented? Yes * How many steps to enter\\exit or inside your home? * PCP DR. Temple ([facility]) * Pharmacy [facility] on [address] * Preadmission Environment Home with Family * ADLs Partial Dependent * Partial ADLs (Assistance needed) Bathing Dressing Transfers * Equipment Bedside Commode Rolling Walker * List name and contact numbers for known caregivers / representatives who currently or will assist patient after discharge: Pardeep Washington - spouse - [phone] * Verbal permission to speak to the caregivers and representatives has been obtained from the patient. Yes * Community resources currently utilized None * Please name any agencies selected above. Has had [facility] in the past and would like them again * Additional services required to return to the preadmission environment? No * Can the patient safely return to the preadmission environment? Yes * Has this patient been hospitalized within the prior 30 days at any hospital? No Last DP export: 08/28/18 11:16 a Patient Name: OLIVIA WASHINGTON Page [id number] at 1646 All edits/amendments must be made on the electronic document DICTATION DATE: 08/28/181646 PORTER HEAD: BETZY 08/28/181646 RPT#: [id number] DC DATE: STATUS: ADM IN [facility] [address] [place] [address] END OF REPORT
--- NOTE | 2018-08-28 18:46 | NUR ---
ALL DISCHARGE INSTRUCTIONS COVERED WITH PT. ALL QUESTIONS ANSWERED. ALL DISCHARGE PAPERS SIGNED. PT DENIES FURTHER QUESTIONS/CONCERNS AT THIS TIME. VANCOMYCIN INFUSION IS STILL INFUSING. WILL NOTIFY INVESTIGATIVE WRITER NURSE TO DC PIV UPON COMPLETION OF VANC FOR DISCHARGE HOME. PT DENIES FURTHER NEEDS.
--- NOTE | 2018-08-28 19:27 | NUR ---
PIV REMOVED TO RIGHT AC WITH CATHETER TIP INTACT. PIV REMOVED FROM RIGHT UPPER ARM WITH CATHETER TIP INTACT. DRESSING APPLIED TO BOTH IV SITES. PT DENIES FURTHER QUESTIONS/NEEDS AT THIS TIME. PT TRANSPORTED FROM ROOM VIA WHEELCHAIR.
[2018-08-29] MEDS ORDERED: FLOVENT HFA 11012 GM INH (18:11)
== END 2018-08-28 19:36 | disposition home health service (06) | DRG 558 ==
LOC: D.ER 07:22 → D.MS 13:10
PROVIDERS: Family Medicine; ADMIT Family Medicine; ATTEND Family Medicine
PROC: 0S9G3ZZ Drainage of Left Ankle Joint, Percutaneous Approach (ICD-10-PCS; principal; 2018-08-25)
DX: M76.822 Posterior tibial tendinitis, left leg (principal); M00.9 Pyogenic arthritis, unspecified; M25.572 Pain in left ankle and joints of left foot; E11.65 Type 2 diabetes mellitus with hyperglycemia; I10 Essential (primary) hypertension; K21.9 Gastro-esophageal reflux disease without esophagitis; M54.5 Low back pain; G40.909 Epilepsy, unspecified, not intractable, without status epilepticus; F41.9 Anxiety disorder, unspecified

== ENCOUNTER 2018-08-29 16:37 | Observation (INO) | payer MEDICAID ==
[~2018-08-29 16:37] MED LIST changes: +BACLOFEN10 MG PO; +CYMBALTA60 MG PO; +GLUCOTROL ER2.5 MG PO; +IBUPROFEN800 MG PO; +LIPITOR40 MG PO; +LYRICA75 MG PO; +PRENAVITE1 TAB PO
[2018-08-29 16:44] VITALS: BMI 42.1
[2018-08-29 17:26] VITALS: BP 163/108
[2018-08-29 17:33] VITALS: BP 162/110
[2018-08-29 17:48] VITALS: BP 151/95
[2018-08-29 17:59] LABS: BASOPHILS 0.3 % (0-2); EOSINOPHILS 3.2 % (0-7); HEMATOCRIT 41.1 % (36.0-48.0); HEMOGLOBIN 13.5 g/dL (12-16); IMMATURE GRANULOCYTES 1.1 % (0-5); LYMPHOCYTES 14.1 % (15-50); MCH 33.1 pg (26.0-34.0); MCHC 32.8 g/dL (31.0-37.0); MEAN PLATELET VOLUME 11.1 fL (7.4-10.4); MONOCYTES 3.5 % (2-11); NEUTROPHILS 77.8 % (40-80); PLATELET COUNT 169 10x3/uL (130-400); RBC 4.08 10x6/uL (4.00-5.40); RDW 12.9 % (11.5-14.5)
[2018-08-29 18:02] LABS: ALBUMIN 2.9 g/dL (3.4-5.0); ALKALINE PHOSPHATASE 93 U/L (46-116); ALT (SGPT) 80 U/L (10-68); BILIRUBIN - TOTAL 0.51 mg/dL (0.2-1.3); CALCIUM 8.8 mg/dL (8.5-10.1); CARBON DIOXIDE 28.5 mmol/L (21.0-32.0); CHLORIDE - SERUM 103 mmol/L (98-107); CREATININE - SERUM 0.8 mg/dL (0.6-1.3); POTASSIUM - SERUM 3.7 mmol/L (3.5-5.1); PROTEIN - SERUM 6.7 g/dL (6.4-8.2); SODIUM 141 mmol/L (136-145); eGFR NON AFRICAN AMERICAN 82 mL/min (90-120)
[2018-08-29 18:04] LABS: CALC OSMOLALITY 285 mosm/kg (275-300); GLUCOSE 202 mg/dL (74-106); UREA NITROGEN 9 mg/dL (7-18)
[2018-08-29] MEDS ORDERED: FLOVENT HFA 11012 GM INH (18:11)
[2018-08-29 18:12] LABS: MCV 100.7 fL (80.0-100.0); WBC 7.2 10x3/uL (4.8-10.8)
[2018-08-29 18:13] LABS: CKMB 0.5 U/L (0.0-3.6); CREATINE KINASE 40 UL (21-215); TROPONIN-I 0.039 ng/mL (0.000-0.060)
--- NOTE | 2018-08-29 18:15 | NUR ---
RECEIVED PT FROM ER. PT IS CRYING AND STATING SHE IS IN EXTREME PAIN 10/10 THAT IS RADIATING ALL OVER. PT DENIES CP. PT IS AAO AND UP AD LEIF. FAMILY AT BEDSIDE. WILL NOTIFY CHARGE NURSE. WILL CTM. WILL PLACE TELEMETRY ON PT.
[2018-08-29 18:20] LABS: APTT 22.2 SECONDS (22.8-39.4)
[2018-08-29 18:21] LABS: INR 1.1 (0.85-1.17); PROTIME 13.7 SECONDS (11.6-15.0)
--- NOTE | 2018-08-29 18:32 | NUR ---
PT IS DEMANDING DILUADID PAIN MEDICATION BECAUSE "THATS THE ONLY THING SHE IS NOT ALLERGIC TO." ADMINISTERED ZOFRAN PRN R/T N/V EVEN THOUGH PT HAS NOT VOMITED. NOTIFIED HER THAT I WOULD TELL THE PHYSICIAN ABOUT HER "PAIN THAT FEELS LIKE MUSCLES TEARING ALL THE WAY THROUGHOUT MY BODY FROM MY LEFT FOOT TO MY LEFT SHOULDER."
[2018-08-29 19:30] LABS: CKMB 0.5 U/L (0.0-3.6); CREATINE KINASE 46 UL (21-215); TROPONIN-I 0.022 ng/mL (0.000-0.060)
--- NOTE | 2018-08-29 19:54 | NUR ---
REPORT RECIEVED AND ROUNDING COMPLETE. PATIENT LAYING IN BED WITH FAMILY AROUND HER. PATIENT IS COMPLAINING OF SEVERE PAIN. PATIENT'S STATES SHE NEEDS PAIN NOW. PATIENT ASKED ME TO REMOVE HER NITRO PATCH/CREAM BECAUSE IT WAS GIVING HER A HEADACHE AND ALSO MAKING HER DIZZY. WILL CALL JERI TO LET HIM KNOW WHAT IS GOING ON AND TO ASK WHAT HIS PLAN FOR PAIN CONTROL.
[2018-08-29 20:25] VITALS: BP 152/57
--- NOTE | 2018-08-29 20:28 | NUR ---
INFORMED PATIENT THAT I SPOKE WITH JERI NESS AND HE STATED PATIENT IS NOT TO HAVE ANY PAIN MEDICATION AT THIS TIME. PATIENT REQUEST TO SEE CHARGE NURSE AND TO BE TRANSFER TO ANOTHER HOSPITAL.
--- NOTE | 2018-08-29 20:30 | NUR ---
PT REQUESTING TO SEE CHARGE NURSE. ENTERED ROOM TO PATIENT YELLING.SCREAMING CURSE WORDS ABOUT THE HOSPITAL AND THE DOCTORS. REQUESTED TO PATIENT THAT SHE PLEASE NOT YELL AND TO TALK TO NURSE ABOUT HER ISSUES. PT CRYING, SOBBING, SAYING THAT SHE WAS LET OUT OF THE HOSPITAL TOO EARLY YESTERDAY. SAYING THAT SHE HAS TO HAVE DILAUDID, THAT SHE IS ALLERGIC TO EVERYTHING ELSE. TELLING NURSE THAT THE DOCTORS DON'T LIKE HER AND WON'T EVEN READ HER CHART AND SHE IS SO ANGRY SHE IS LEAVING TO GO SOMEWHERE ELSE. CALMED PATIENT DOWN, INFORMED PATIENT THAT THE MD HAD GIVEN ORDERS AND THE NURSES CAN ONLY FOLLOW THE ORDERS. PT HAS A LARGE AMOUNT OF FAMILY IN ROOM AND THEY ARE ALL TALKING AT THE SAME TIME ABOUT HOW PATIENT SHOULD BE TREATED BETTER. PATIENT ALSO HAS SOMEONE ON HER SPEAKERPHONE CELL PHONE THAT IS LISTENING AND REPEATEDLY SAYING, "GET YOUR RECORDS AND THEN LM THEM!". PT HAS PULLED OFF HER TELEMETRY AND IS SAYING SHE IS LEAVING NOW. INFORMED PATIENT THAT IF SHE DOES LEAVE, THEN THE IV NEEDS TO BE REMOVED. PT STARTS PULLING OFF THE TAPED AREA OF THE IV. CONVINCED PT TO LET NURSE APPROPRIATELY REMOVE THE IV AND THEN REMOVED IV AT THIS TIME. DURING THIS TIME, THE PRIMARY NURSE MADE CONTACT WITH JERI MCGUIRE APN AND HE IS COMING TO SPEAK WITH PATIENT AND FAMILY.
--- NOTE | 2018-08-29 20:36 | NUR ---
PATIENT STATES SHE IS LEAVING AMA. CALLED JERI NESS AND INFORMED HIM, HE SAID HE WILL HEAD THIS WAY NOW.
--- NOTE | 2018-08-29 21:14 | NUR ---
JERI MCGUIRE APN CAME AND TALKED WITH PATINENT AND FAMILY, HE EXPLAINED OUR PALN OF CARE, PATIENT WAS NOT OK WITH WHAT WAS BEING EXPLAINED. WE ARE WAITING ON THE PATIENT DECISION.
--- NOTE | 2018-08-29 22:00 | NUR ---
PT'S DAUGHTER UP AT STATION, REQUESTING DOCUMENTATION OF WHAT HAD BEEN DONE FOR PATIENT SO THEY COULD TAKE IT TO ANOTHER HOSPITAL. AT THIS POINT, PT HAD BEEN "THINKING IT OVER" ON IF SHE WAS STAYING OR GOING AMA. DAUGHTER STATES PT IS LEAVING AMA. PROVIDED PT WITH COPIES OF LABS AND HER CHEST XRAY DONE IN ER TODAY, BUT INFORMED DAUGHTER THAT NO OTHER PAPERWORK WAS PRESENT TO BE PROVIDED AT THIS TIME SINCE IT WAS ALL DICTATED.
--- NOTE | 2018-08-29 22:10 | NUR ---
PATIENT DECIDED TO LEAVE AMA, PATIENT SIGNED AMA PAPERWORK. ASSISTED PATIENT OUT TO HER CAR VIA WHEELCHAIR, PATIENT STATES SHE IS HEADING OVER TO THE OTHER HOSPITAL WHERE SHE WILL ACTUALLY BE TREATED.
--- NOTE | 2018-09-01 09:09 | MORECARE ---
CASE MANAGEMENT DISCHARGE SUMMARY PATIENT: OLIVIA BEY S UNIT: [id number] ADM DATE: 08/29/18 AGE: 48 : 74 SEX: F ROOM/BED: D.7978 AUTHOR: GREG MILLER PHYSICIAN: REFERRING PHYSICIAN: FRANK HOGAN DO DATE OF SERVICE: 09/01/18 Discharge Plan Patient Name: OLIVIA BEY Facility: [facility]:[place] : 1970 Planned Disposition: Left Against Medical Advice Anticipated Discharge Date: 08/29/18 Discharge Date: 08/29/2018 Expected LOS: 1 Initial Reviewer: [email or web address] Initial Review Date: 09/01/2018 Generated: 09/01/18 10:08 am Patient Name: OLIVIA BEY Page [phone] at 0909 All edits/amendments must be made on the electronic document DICTATION DATE: 09/01/18907 HIGH SCHOOL BUSINESS TEACHER: DM 09/01/18907 RPT#: [id number] DC DATE:08/29/18 STATUS: DIS IN [facility] [address] [place] [address] END OF REPORT
== END 2018-08-29 23:18 | disposition left against medical advice (07) ==
LOC: D.ER 16:37 → OBSVTIME 17:53 → D.M2 17:53
PROVIDERS: Family Medicine; ADMIT Family Medicine; ATTEND Family Medicine
DX: I20.0 Unstable angina (principal); I10 Essential (primary) hypertension; K21.9 Gastro-esophageal reflux disease without esophagitis; M19.90 Unspecified osteoarthritis, unspecified site; F41.9 Anxiety disorder, unspecified; G40.909 Epilepsy, unspecified, not intractable, without status epilepticus; E11.65 Type 2 diabetes mellitus with hyperglycemia

== ENCOUNTER 2018-11-28 12:15 | Observation (INO) | payer MEDICAID ==
[~2018-11-28] VITALS: Ht 162.6 cm; Wt 109.1 kg
[~2018-11-28 12:15] MED LIST changes: +FLOVENT HFA 11012 GM INH
[2018-11-28 13:46] LABS: BASOPHILS 0.2 % (0-2); EOSINOPHILS 0.2 % (0-7); HEMATOCRIT 44.2 % (36.0-48.0); HEMOGLOBIN 14.7 g/dL (12-16); IMMATURE GRANULOCYTES 0.3 % (0-5); LYMPHOCYTES 12.5 % (15-50); MCH 32.9 pg (26.0-34.0); MCHC 33.3 g/dL (31.0-37.0); MCV 98.9 fL (80.0-100.0); MONOCYTES 3.5 % (2-11); NEUTROPHILS 83.3 % (40-80); RBC 4.47 10x6/uL (4.00-5.40)
[2018-11-28 13:50] LABS: PLATELET COUNT 207 10x3/uL (130-400)
[2018-11-28 14:14] LABS: ALBUMIN 3.7 g/dL (3.4-5.0); ALKALINE PHOSPHATASE 99 U/L (46-116); ALT (SGPT) 96 U/L (10-68); AMYLASE - SERUM 73 U/L (25-115); BILIRUBIN - TOTAL 0.63 mg/dL (0.2-1.3); CALCIUM 8.4 mg/dL (8.5-10.1); CARBON DIOXIDE 25.3 mmol/L (21.0-32.0); CHLORIDE - SERUM 101 mmol/L (98-107); CREATININE - SERUM 0.6 mg/dL (0.6-1.3); LIPASE 100 U/L (73-393); POTASSIUM - SERUM 3.7 mmol/L (3.5-5.1); PROTEIN - SERUM 8.2 g/dL (6.4-8.2); SODIUM 138 mmol/L (136-145); UREA NITROGEN 13 mg/dL (7-18); eGFR NON AFRICAN AMERICAN > 90 mL/min (90-120)
[2018-11-28 14:16] LABS: CALC OSMOLALITY 277 mosm/kg (275-300); GLUCOSE 129 mg/dL (74-106)
[2018-11-28 14:19] LABS: TROPONIN-I 0.085 ng/mL (0.000-0.060)
[2018-11-28 15:44] LABS: CKMB 1.1 U/L (0.0-3.6); CREATINE KINASE 79 UL (21-215)
[2018-11-28 19:45] VITALS: BP 190/115
[2018-11-28 19:48] LABS: CKMB 0.9 U/L (0.0-3.6); CREATINE KINASE 56 UL (21-215)
[2018-11-28 19:52] VITALS: BP 168/112
[2018-11-28 19:59] LABS: TROPONIN-I 0.063 ng/mL (0.000-0.060)
--- NOTE | 2018-11-28 20:40 | NUR ---
ADMIT TO ROOM 2113 FROM ER. ALERT/ORIENTED. PIV SALINE LOCKED TO RIGHT A/C. STARTED IV DFNS @ 60ML/HR. TELEMETRY INITIATED /72. PT C/O PAIN/NAUSEA. PT TEACHING ON PAIN MEDS/NAUSEA MEDS AVAILABLE EVERY 4 HOURS AND HER LAST DOSE WAS AT 1907. WILL MONITOR.
[2018-11-28 21:37] LABS: APPEARANCE CLEAR (CLEAR); COLOR YELLOW (YELLOW)
[2018-11-28 21:38] LABS: BILIRUBIN NEGATIVE (NEGATIVE); GLUCOSE NEGATIVE (NEGATIVE); KETONE NEGATIVE (NEGATIVE); NITRITE NEGATIVE (NEGATIVE); PROTEIN NEGATIVE (NEGATIVE)
--- NOTE | 2018-11-28 21:45 | NUR ---
PHONE CALL FROM AND HE IS EMOTIONALLY UPSET ABOUT AND HER BEING ILL AND IN HOSPITAL. HE REPORTS THAT PT OVERUSES HER PERCOCET AT HOME AND ALSO DRINKS 1/2 GALLON OF HARD LIQUOR A WEEK. HE STATES HIS HAS A PROBLEM AND HE IS AN ENABLER. HE IS VERY FRUSTRATED SAYING SHE BECOMES PHYSICALLY AND VERBALLY ABUSIVE WHEN HE TRIES TO GET HER TO NOT MEDICATE AND DRINK. CALMED DOWN, ENCOURAGED HIM TO REST AND THAT ALL INFO WOULD BE RELAYED TO PRIMARY MD IN ORDER TO PROVIDE THE BEST CARE TO HIS .
[2018-11-28 22:45] VITALS: BMI 42.1
--- NOTE | 2018-11-28 23:22 | NUR ---
MEDICATED WITH ZOFRAN FOR NAUSEA AND DILAUDID FOR PAIN. PROVIDED ICE CHIPS AND LEMONLIME WITH SALTINES FOR PATIENT TO TRY AND EAT.
--- NOTE | 2018-11-28 23:44 | NUR ---
DECIDED TO COME UP HERE AND CHECK ON PATIENT AND IS CURRENTLY IN HER ROOM.
[2018-11-29 00:05] VITALS: BP 165/105
--- NOTE | 2018-11-29 02:56 | NUR ---
AWAKE WITH C/O NAUSEA AND ABDOMINAL PAIN. MEDICATED WITH ZOFRAN AND DILAUDID SIVP. CPOC.
[2018-11-29 04:10] VITALS: BP 154/98
--- NOTE | 2018-11-29 05:15 | NUR ---
PT CRYING WHEN TOLD IT WAS 2 HOURS BEFORE SHE COULD HAVE PAIN MEDS. PT STATES IT TAKES VERY LARGE DOSES OF PAIN MEDS TO MAKE HER COMFORTABLE.
[2018-11-29 06:44] LABS: CALC OSMOLALITY 280 mosm/kg (275-300); CALCIUM 8.9 mg/dL (8.5-10.1); CHLORIDE - SERUM 101 mmol/L (98-107); CKMB 0.7 U/L (0.0-3.6); CREATINE KINASE 52 UL (21-215); GLUCOSE 133 mg/dL (74-106); POTASSIUM - SERUM 3.6 mmol/L (3.5-5.1); SODIUM 139 mmol/L (136-145); UREA NITROGEN 16 mg/dL (7-18)
[2018-11-29 06:46] LABS: CREATININE - SERUM 0.9 mg/dL (0.6-1.3); TROPONIN-I 0.075 ng/mL (0.000-0.060); eGFR NON AFRICAN AMERICAN 71 mL/min (90-120)
[2018-11-29 06:49] LABS: INR 1.18 (0.85-1.17); PROTIME 14.4 SECONDS (11.6-15.0)
[2018-11-29 07:21] LABS: BASOPHILS 0.2 % (0-2); EOSINOPHILS 0.3 % (0-7); HEMATOCRIT 44.4 % (36.0-48.0); HEMOGLOBIN 14.3 g/dL (12-16); IMMATURE GRANULOCYTES 0.2 % (0-5); MCH 32.6 pg (26.0-34.0); MCHC 32.2 g/dL (31.0-37.0); MEAN PLATELET VOLUME 11.1 fL (7.4-10.4); MONOCYTES 4.6 % (2-11); NEUTROPHILS 75.7 % (40-80); PLATELET COUNT 229 10x3/uL (130-400); RBC 4.38 10x6/uL (4.00-5.40); RDW 13.3 % (11.5-14.5); WBC 9.9 10x3/uL (4.8-10.8)
[2018-11-29 07:22] LABS: MCV 101.4 fL (80.0-100.0)
[2018-11-29 09:17] VITALS: BP 138/96
[2018-11-29 11:46] LABS: CREATINE KINASE 49 UL (21-215); TROPONIN-I 0.051 ng/mL (0.000-0.060)
[2018-11-29 12:29] VITALS: BP 161/85
[2018-11-29 12:32] VITALS: Ht 162.6 cm; Wt 109.1 kg
--- NOTE | 2018-11-29 15:51 | NUR ---
TELEMETRY SR. PAIN MANAGEMENT CONT. CALL LIGHT IN REACH. WILL MONITOR.
[2018-11-29 16:52] VITALS: BP 161/101
[2018-11-29 20:00] VITALS: BP 162/104
--- NOTE | 2018-11-29 21:21 | NUR ---
BEDTIME MEDS GIVEN + REQUESTED ZOFRAN IV FOR NAUSEA + PERCOCET REQUESTED FOR ABDOMINAL PAIN. FSBS 127 AND PATIENT JUST FINISHED EATING AN ENTIRE SANDWICH TRAY.
[2018-11-30] VITALS: BP 150/90
--- NOTE | 2018-11-30 02:42 | NUR ---
IV ABT UP AND INFUSING. PT RESTING WITH EYES CLOSED. CPOC.
[2018-11-30 04:00] VITALS: BP 175/110
--- NOTE | 2018-11-30 05:37 | NUR ---
MEDICATED FOR PAIN. AT BEDSIDE. PT EATING A HAMBURGER (5AM) NO REPORTS OF NAUSEA. CPOC.
[2018-11-30 06:47] LABS: ANION GAP 12.3 mmol/L (8-16); CALCIUM 8.8 mg/dL (8.5-10.1); CARBON DIOXIDE 32.7 mmol/L (21.0-32.0); CREATININE - SERUM 1.2 mg/dL (0.6-1.3)
[2018-11-30 07:23] LABS: BASOPHILS 0.5 % (0-2); EOSINOPHILS 2.9 % (0-7); HEMATOCRIT 41.9 % (36.0-48.0); HEMOGLOBIN 13.7 g/dL (12-16); IMMATURE GRANULOCYTES 0.2 % (0-5); LYMPHOCYTES 27.2 % (15-50); MCH 32.8 pg (26.0-34.0); MCHC 32.7 g/dL (31.0-37.0); MCV 100.2 fL (80.0-100.0); MEAN PLATELET VOLUME 10.4 fL (7.4-10.4); MONOCYTES 5.3 % (2-11); NEUTROPHILS 63.9 % (40-80); PLATELET COUNT 178 10x3/uL (130-400); RBC 4.18 10x6/uL (4.00-5.40); RDW 13.1 % (11.5-14.5); WBC 5.8 10x3/uL (4.8-10.8)
[2018-11-30 08:36] VITALS: BP 169/113
[2018-11-30] MEDS ORDERED: PROTONIX40 MG PO (08:43)
--- NOTE | 2018-11-30 10:20 | NUR ---
IV AND TELEMETRY DCD. DC PLANS GIVEN. UNDERSTANDING VOICED. ESCORTED TO CAR BY W/C.
--- NOTE | 2018-12-01 08:48 | MORECARE ---
CASE MANAGEMENT DISCHARGE SUMMARY PATIENT: OLIVIA BEY S UNIT: [id number] ADM DATE: 11/28/18 AGE: 48 : 74 SEX: F ROOM/BED: D.0444 AUTHOR: GREG MILLER PHYSICIAN: REFERRING PHYSICIAN: EVY CAIN MD DATE OF SERVICE: 12/01/18 Discharge Plan Patient Name: OLIVIA BEY Facility: [facility]:[place] : 1970 Planned Disposition: Home Anticipated Discharge Date: 11/30/18 Discharge Date: 11/30/2018 Expected LOS: 2 Initial Reviewer: [email or web address] Initial Review Date: 12/01/2018 Generated: 12/01/18 9:48 am Patient Name: OLIVIA BEY Page [phone] at 0848 All edits/amendments must be made on the electronic document DICTATION DATE: 12/01/18 0848 CONTRACTING SPECIALIST: BETZY 12/01/18 0848 RPT#: [id number] DC DATE:11/30/18 STATUS: DIS IN [facility] [address] [place] [address] END OF REPORT
--- NOTE | 2018-12-01 14:34 | EC ---
PATIENT:OLIVIA BEY DATE OF SERVICE: 11/28/18 SEX: F MEDICAL RECORD: [id number] DATE OF : [birth year] LOCATION:D. D.211 AGE OF PATIENT: 48 ADMISSION DATE: 11/28/18 REFERRING PHYSICIAN: INTERPRETING PHYSICIAN: JIN SMITH MD ECHOCARDIOGRAM REPORT ECHO CHARGES 4 ECHO COMPLETE Date: 11/29/18 CLINICAL DIAGNOSIS: KS ECHOCARDIOGRAPHIC MEASUREMENTS (adult normal given) AC root (d.<3.7cm) 3.9 cm LV Septum d (<1.2 cm> 1.1 cm Valve Excursion 2.0 cm LV Septum (systole) 1.4 cm Left Atria (s.<4.0cm> 3.2 cm LVPW d(<1.2cm) 1.2 cm RV (d.<2.3cm) 3.4 cm LVPW (sytole) 1.7 cm LV diastole(<5.6CM) 5.0 cm MV E-F(>70mm/sec) cm LV systole 3.6 cm LVOT Diameter 2.1 cm MV exc.(>10mm) 1.2 cm Est.ejection fraction (50-75%) % DOPPLER: LVIT cm/sec A 70.0 cm/sec E 52.0 cm/sec LA cm/sec RVSP 41 mmHg LVOT 71 cm/sec AOP1/2T m/s Asc. Ao 115 cm/sec RVOT 106 cm/sec RA cm/sec PA 136 cm/sec AV Gradient Peak 5.33 mmHg AV Mean 3.09 mmHg AV Area 2.0 cm MV Gradient Peak 2.21 mmHg MV Mean 1.25 mmHg MV Area cm COMMENTS: Sous Chef Kitchen Manager: Monet DIAS Bag Valver: 1 Dr. Smith TAPE# PACS Pericardial Effusion N DATE OF SERVICE: 11/29/2018 PROCEDURE: Echocardiogram. FINDINGS: 1. Left ventricular chamber size is within normal limits. Left ventricular systolic function is normal at 60% to 65%. 2. Left atrium is enlarged at 3.2 cm. Right atrium and right ventricular chamber sizes are as well mildly dilated. 3. Valvular structures have normal structure and motion. ECHOCARDIOGRAM REPORT [id number] OLIVIA BEY 4. Doppler interrogation reveals tnlu-jt-bmbggabg tricuspid regurgitation, no other valvular insufficiency or stenosis. Pulmonary systolic pressure is estimated 41 mmHg. 5. No evidence of pericardial effusion or left ventricular thrombus. TRANSINT:[id number] Voice Confirmation ID: [id number] DOCUMENT ID: [id number] JNI SMITH MD at 1434 CC: [id number] DICTATION DATE: 11/30/18 1241 SENIOR TELECOMMUNICATIONS TECHNICIAN: 11/30/18 1301 DIS IN 11/30/18 [place] [id number] [place] [id number]
--- NOTE | 2018-12-01 14:34 | CN ---
PATIENT NAME:OLIVIA BEY MEDICAL RECORD: [id number] : 74 LOCATION:D. D.2114 ADMIT DATE: 11/28/18 ACCOUNT: [id number] CONSULTING PHYSICIAN: JIN SONG MD REFERRING PHYSICIAN: EVY CAIN MD DATE OF CONSULTATION: 11/29/2018 DIAGNOSES: 1. Increased troponin, non-Q-wave myocardial infarction. 2. Gastrointestinal bleed. 3. Nausea and vomiting. 4. History of supraventricular tachycardia. 5. Smoking. 6. Chronic obstructive pulmonary disease. 7. Hypertension. 8. Hyperlipidemia. 9. Byt-hkrkcbz-jwqbniibe diabetes. HISTORY OF PRESENT ILLNESS: Mrs. Bey has no history of ischemic heart disease. She has a history of dysrhythmia for which she is followed by fur scraper in [place]. She is seen by an land conservation specialist and an ablation is planned in the future. She has not had any supraventricular tachycardia. She has not had any chest pain. She came in with nausea, vomiting, and vomiting blood. She has no history of GI bleed. She has not had any further nausea or GI bleeding since being admitted. She has risk factors of hypertension, hyperlipidemia, dyo-zjsrpjd-vglxcnsmw diabetes as well as smoking. Her troponin is mildly elevated at 0.85 yesterday, it is now coming down to 0.75. Her EKG is with no ST-T changes. She denies any chest pain with this. She did have abdominal pain with nausea and vomiting as well as diarrhea. PHYSICAL EXAMINATION: CONSTITUTIONAL/GENERAL APPEARANCE: Well nourished, well developed, appears stated age. EYES: Lids and conjunctivae noninjected. No discharge. No pallor. ENT: Lips within normal limit. No cyanosis. No pallor. NECK: Carotid arteries, bilateral normal upstroke. No bruits. No thrills. No jugular venous pressure or distention. CERVICAL LYMPH NODES: Nontender. Nonenlarged. THYROID: Not enlarged. No nodules. CARDIOVASCULAR: Precordial exam, nondisplaced. No heaves or pericardial thrills. Rate and rhythm, regular. Heart sounds, normal S1, normal S2. No S3, no gallop, no rub. Systolic murmur, not heard. Diastolic murmur, not heard. RESPIRATORY: Respiratory effort, unlabored. Normal curvature. No thoracic deformity. No chest wall tenderness. Percussion, resonant. Auscultation, clear. No wheezes, no rales, no rhonchi. ABDOMEN: Soft, nondistended, nontender. No abdominal pain, no vomiting and normal appetite. MUSCULOSKELETAL: No joint tenderness, normal gait, normal tone. SKIN: Warm and dry. OVERALL IMPRESSION: Elevated troponin, non-Q-wave myocardial infarction. Difficult to say if this is demand ischemia from the nausea, vomiting, and GI bleed or if this is actually from ischemic heart disease. Her hemoglobin is normal at 14.3. Hence, if she did have a GI bleed, this would have been minimal. Either way with the history of the recent bleed, cannot proceed with CONSULT REPORT [id number] OLIVIA BEY S transcatheter revascularization as she would be high risk for a repeat bleeding with dual antiplatelet therapy. At this time, we will get an echocardiogram to evaluate her overall LV function and for wall motion abnormalities. Would suggest stabilizing from the standpoint of GI, especially from the standpoint of bleeding prophylaxis and follow up with a stress test Cardiolite imaging within 2-3 weeks if the GI situation is stabilized and if she has no further signs or symptoms of ischemic heart disease. This can be done by her fur scraper in [place] or it could be done by us here. TRANSINT:[id number] Voice Confirmation ID: [id number] DOCUMENT ID: [id number] JIN SONG MD at 1434 CC: [id number] DICTATION DATE: 11/29/18904 PHYSICIAN SURGEON: 11/29/18915 DIS IN 11/30/18 [place] [id number] [place] [id number]
== END 2018-11-30 10:20 | disposition home or self-care (01) ==
LOC: D.ER 12:15 → OBSVTIME 18:32 → D.M2 18:32
PROVIDERS: Emergency Medicine; ADMIT Internal Medicine Nephrology; ATTEND Internal Medicine Nephrology
DX: I21.4 Non-ST elevation (NSTEMI) myocardial infarction (principal); K52.9 Noninfective gastroenteritis and colitis, unspecified; R04.0 Epistaxis; R16.1 Splenomegaly, not elsewhere classified; K21.9 Gastro-esophageal reflux disease without esophagitis; I10 Essential (primary) hypertension; E78.5 Hyperlipidemia, unspecified; E11.9 Type 2 diabetes mellitus without complications; G43.909 Migraine, unspecified, not intractable, without status migrainosus; F41.9 Anxiety disorder, unspecified; E66.01 Morbid (severe) obesity due to excess calories; Z68.41 Body mass index [BMI] 40.0-44.9, adult